=== PATIENT | male | born 1995 | race Caucasian/White ===

== ENCOUNTER 2020-01-17 13:48 | Outpatient (CLI) | payer OTHER, SELFPAY | END 2020-01-17 13:49 | disposition home or self-care (01) | LOC: ANHLAB 13:50 | PROVIDERS: Visit Provider Internal Medicine | DX: Z20.2 Contact with and (suspected) exposure to infections with a predominantly sexual mode of transmission (principal) | CPT/HCPCS: 87491; 87591 ==

== ENCOUNTER 2020-03-04 13:16 | Outpatient (CLI) | payer OTHER, SELFPAY ==
[2020-03-05 08:49] LABS: Rapid Plasma Reagin Non-Reactive (NonReactive)
[2020-03-08 17:20] LABS: HIV 1 RNA PCR <1.30 Log cps/mL; HIV 1 RNA PCR <20 Copies/mL
== END 2020-03-04 13:17 | disposition home or self-care (01) ==
PROVIDERS: Visit Provider Internal Medicine
DX: Z20.2 Contact with and (suspected) exposure to infections with a predominantly sexual mode of transmission (principal)
CPT/HCPCS: 36415; 86592; 87491; 87536; 87591

== ENCOUNTER 2020-08-27 16:43 | Outpatient (CLI) | payer OTHER, SELFPAY ==
--- NOTE | ~2020-08-27 | XR_ITS ---
EXAMINATION: XR chest 2V DATE: 08/27/2020 17:10 INDICATION: Cough with occasional shortness of breath TECHNIQUE: PA and lateral views of the chest are obtained. COMPARISON: None available FINDINGS: The lungs are free of acute opacities. There is no pleural effusion or pneumothorax. The ca rdiomediastinal silhouette is normal. The visualized bones and soft tissues are unremarkable. IMPRESSION: 1. No acute cardiopulmonary abnormality. Reviewed, dictated and finalized at location A. [employer] CONTAINER
--- NOTE | ~2020-08-27 | XR_ITS ---
EXAMINATION: XR sinus min 3V INDICATION: Cough TECHNIQUE: Five views of the paranasal sinuses are obtained. COMPARISON: None available FINDINGS: The right frontal sinus is hypoplastic. No sinus opacification is identified. The facial toni quinton are unremarkable. IMPRESSION: 1. No evidence of sinus disease although sensitivity of radiographs is low. If there is high clinical suspicion for sinusitis, consider sinus CT. Reviewed, dictated and finalized at location A. WARE ADMINISTRATOR
== END 2020-08-27 16:44 | disposition home or self-care (01) ==
PROVIDERS: Visit Provider Internal Medicine
DX: R05 Cough (principal)
CPT/HCPCS: 70220; 71046

== ENCOUNTER 2022-02-25 14:23 | Outpatient (CLI) | payer BC, SELFPAY ==
--- NOTE | ~2022-02-25 | XR_ITS ---
XR foot RT min 3V DATE: 02/25/2022 14:51 INDICATION: Lateral right foot pain TECHNIQUE: Standing 4 view examination COMPARISON: None FINDINGS: No fracture or dislocation, periosteal reaction or bone destruction. IMPRESSION: Negative Reviewed, dictated and finalized at location A. IMPRESSION: Negative
== END 2022-02-25 14:24 | disposition home or self-care (01) ==
PROVIDERS: PCP Internal Medicine
DX: M79.671 Pain in right foot (principal)
CPT/HCPCS: 73630